=== PATIENT | female | born 1950 | race Caucasian/White ===

== ENCOUNTER 2018-02-10 07:54 | Day surgery (SDC) | payer MEDICARE ==
[~2018-02-10 07:54] MED LIST: Propofol 10 mg/ml Inj (20 ML) ONE
[2018-02-10 08:29] VITALS: BMI 21.2
[2018-02-10 08:41] VITALS: O2SAT 100
--- NOTE | 2018-02-10 09:19 | CP.SDSHP ---
Same Day Surgery H & P - History Proposed Procedure: colonoscopy Pre-Op Diagnosis: h/o colon polyps - Allergies Allergies: Allergies No Known Allergies Allergy (Verified 02/10/18 08:29) - Physical Exam General Appearance: nl Vital Signs: Vital Signs 02/10/18 08:30 Temperature 96.8 F L Pulse Rate 59 L Respiratory 19 Rate Blood Pressure 133/71 O2 Sat by Pulse 100 Oximetry Mental Status: Alert & Oriented x3 Neuro: WNL Heart: WNL Lungs: WNL GI: WNL - {Optional Preform as Required} Abdomen: WNL - Impression Impression: h/o colon polyps Pt. Evaluated Today:Candidate for Anesthesia & Procedure: Yes - Date & Time Date: 02/10/18 Time: 09:19 Short Stay Discharge - Short Stay Discharge Admitting Diagnosis/Reason for Visit: PERSONAL HISTORY OF COLONIC POLYPS Disposition: HOME/ ROUTINE
[2018-02-10 10:13] VITALS: TEMP 97.5
[2018-02-10 11:09] VITALS: BP 140/72; PULSE 66; RESP 12
== END 2018-02-10 10:55 | disposition home or self-care (01) ==
LOC: C.ENDO 07:54
PROVIDERS: ATTEND Internal Medicine
DX: Z12.11 Encounter for screening for malignant neoplasm of colon (principal); D12.3 Benign neoplasm of transverse colon; K63.5 Polyp of colon; K64.8 Other hemorrhoids; Z87.19 Personal history of other diseases of the digestive system
CPT/HCPCS: 45380; 88305; J2704

== ENCOUNTER 2018-04-22 06:41 | Day surgery (SDC) | payer MEDICARE ==
[2018-04-04 10:41] VITALS: BMI 22.1
[2018-04-22] MEDS ORDERED: Lidocaine 2% MPF (5 ml) Inj ONE (07:41)
[2018-04-22] MEDS ORDERED: Bupivacaine 0.25% 20 ML INJ IJ ONE (07:41)
[2018-04-22] MEDS ORDERED: Midazolam 2 MG/2 ML VIAL ONE (09:28)
[2018-04-22] MEDS ORDERED: Propofol 10 mg/ml Inj (20 ML) ONE (09:28)
--- NOTE | 2018-04-22 10:08 | PCM.SURG1 ---
<Margot Downs - Last Filed: 04/22/18 10:06> Surgeon's Initial Post Op Note - Surgeon's Notes Surgeon: Dr. Bernal [employer] Mechanic: Dr. Miller Type of Anesthesia: IV Sedation, Local Pre-Operative Diagnosis: Portacath s/p chemo for breast cancer Operative Findings: Left portacath Post-Operative Diagnosis: Portacath s/p chemo for breast cancer Operation Performed: Portacath removal Specimen/Specimens Removed: portacath Estimated Blood Loss: EBL {In ML}: 5 Blood Products Given: N/A Drains Used: No Drains Post-Op Condition: Good Date of Surgery/Procedure: 04/22/18 Time of Surgery/Procedure: 09:00 <Jane Bernal - Last Filed: 04/23/18 14:31> Surgeon's Initial Post Op Note - Surgeon's Notes Electrical [employer] Mechanic: Dr Downs
[2018-04-22] MEDS ORDERED: HYDROmorphone 0.5 mg/0.5 ml ISec IVP PRN (10:10)
[2018-04-22 12:04] VITALS: BP 125/64; PULSE 59; RESP 18; TEMP 97.7; O2SAT 97
--- NOTE | 2018-04-24 01:43 | OP ---
Copied To: Jane Bernal MD Attending MD: Jane Bernal MD PROCEDURE DATE: 04/22/2018 SURGEON: Jane Bernal MD [employer] REPRESENTATIVE: Margot Downs DO ANESTHESIA: Local with IV sedation. ANESTHESIOLOGIST: KAREN Quezada. DESCRIPTION OF PROCEDURE: With the patient in the supine position having received IV sedation, the left upper chest was prepped and draped in the usual sterile manner. The patient had a well-healed Port-A-Cath, which was noted to tunnel to a left internal jugular insertion site. The skin overlying the insertion incision was infiltrated with 1% lidocaine, and the incision was re-opened. The incision was deepened down to the port, which was elevated out of the incision. Two tacking sutures were divided, and the port was removed. Gentle traction on the port was then used to extract the catheter from the vein, which was done with minimal resistance. The tunnel was gently compressed for hemostasis. The incision was closed with subcuticular sutures of 4-0 Monocryl and Steri-Strips. Dry sterile dressing was applied. The patient tolerated the procedure well and transferred to recovery room in stable condition. Estimated blood loss for the procedure was 5 mL. Jane Bernal MD [email or web address]
== END 2018-04-22 12:11 | disposition home or self-care (01) ==
LOC: C.SDS 06:41
PROVIDERS: ATTEND Specialist
DX: Z45.2 Encounter for adjustment and management of vascular access device (principal); C50.911 Malignant neoplasm of unspecified site of right female breast; Z92.21 Personal history of antineoplastic chemotherapy
CPT/HCPCS: 36590; 88300; J2250; J2704; J3010